=== PATIENT | male | born 1995 | race African-American/Black ===

== ENCOUNTER 2018-07-10 20:14 | Emergency (ER) | payer OTHER ==
[~2018-07-10] VITALS: Ht 182.9 cm; Wt 67.0 kg
[2018-07-10] MEDS ORDERED: TRAM50TA2 PO (21:09)
[2018-07-10] MEDS ORDERED: APAP325T4 PO (21:09)
[2018-07-10] MEDS ORDERED: OXYC1TAB23 PO (21:09)
[2018-07-10 22:10] LABS: HEMATOCRIT 37.4 % (42.0-52.0); HEMOGLOBIN 12.8 g/dl (13.5-17.5); MEAN CORPUSCULAR HEMOGLOBIN 31.4 pg (27.0-33.0); MEAN CORPUSCULAR HGB CONC 34.2 g/dl (32.0-36.5); MEAN CORPUSCULAR VOLUME 91.7 fl (80.0-96.0); PLATELET COUNT, AUTOMATED 214 10^3/uL (150-450); RED BLOOD COUNT 4.08 10^6/uL (4.30-6.10); WHITE BLOOD COUNT 5.4 10^3/uL (4.0-10.0)
[2018-07-10 22:27] LABS: BLOOD UREA NITROGEN 8 MG/DL (7-18); CALCIUM LEVEL 8.2 MG/DL (8.5-10.1); CARBON DIOXIDE LEVEL 27 MEQ/L (21-32); CHLORIDE LEVEL 107 MEQ/L (98-107); CREATININE FOR GFR 1.04 MG/DL (0.70-1.30); GLOMERULAR FILTRATION RATE > 60.0 (>60); GLUCOSE, FASTING 80 MG/DL (70-100); POTASSIUM SERUM 3.8 MEQ/L (3.5-5.1); SODIUM LEVEL 141 MEQ/L (136-145)
--- NOTE | 2018-07-10 22:43 | REPVR ---
EXAM: CT Head Without Contrast EXAM DATE/TIME: 07/10/2018 10:18 PM CLINICAL HISTORY: 22 years old, male; Injury or trauma; Fall; Additional info: Fall and loc TECHNIQUE: Axial computed tomography images of the head/brain without contrast. All CT scans at this facility use at least one of these dose optimization techniques: automated exposure control; mA and/or kV adjustment per patient size (includes targeted exams where dose is matched to clinical indication); or iterative reconstruction. COMPARISON: No relevant prior studies available. FINDINGS: Brain: Low density in the white matter of the posterior parietal and occipital lobes may be artifactual although posttraumatic edema not excluded. MRI correlation would be helpful if deemed clinically necessary. Ventricles: Normal. No ventriculomegaly. Bones/joints: Unremarkable. No acute fracture. Sinuses: Visualized sinuses are unremarkable. No acute sinusitis. Mastoid air cells: Visualized mastoid air cells are unremarkable. No mastoid effusion. Soft tissues: Diffuse scalp edema. Finding likely posttraumatic. Oropharynx: Low-lying cerebellar tonsil on the right. Correlation with MRI is suggested to exclude Chiari 1 malformation. IMPRESSION: 1. Low-lying cerebellar tonsil on the right. Correlation with MRI is suggested to exclude Chiari 1 malformation. 2. Diffuse scalp edema. Finding likely posttraumatic. 3. Low density in the white matter of the posterior parietal and occipital lobes may be artifactual although posttraumatic edema not excluded. MRI correlation would be helpful if deemed clinically necessary. Electronically signed by: Ruiz Doimnguez On 07/10/2018 22:43:20 PM
--- NOTE | 2018-07-10 22:46 | REPVR ---
EXAM: CT Cervical Spine Without Contrast EXAM DATE/TIME: 07/10/2018 10:18 PM CLINICAL HISTORY: 22 years old, male; Injury or trauma; Fall; Initial encounter; Blunt trauma; Additional info: Fall and loc TECHNIQUE: Axial computed tomography images of the cervical spine without intravenous contrast. All CT scans at this facility use at least one of these dose optimization techniques: automated exposure control; mA and/or kV adjustment per patient size (includes targeted exams where dose is matched to clinical indication); or iterative reconstruction. Coronal and sagittal reformatted images were created and reviewed. COMPARISON: No relevant prior studies available. FINDINGS: Vertebrae: This fracture of the anterior inferior aspect of C5. Probable acute fracture at the anterior inferior aspect of C7 as well. Discs/Spinal canal/Neural foramina: Disc space narrowing at C5-6. Soft tissues: Unremarkable. Lungs: Lung apices are normal. IMPRESSION: This fracture of the anterior inferior aspect of C5. Probable acute fracture at the anterior inferior aspect of C7 as well. Electronically signed by: Ruiz Dominguez On 07/10/2018 22:46:03 PM
--- NOTE | 2018-07-11 00:57 | REPVR ---
EXAM: MR Head Without Contrast EXAM DATE/TIME: 07/11/2018 12:07 AM CLINICAL HISTORY: 22 years old, male; Pain and injury or trauma and signs and symptoms; Fall; Initial encounter; Concussion / head injury; With loss of consciousness; Loss of consciousness for 30 minutes or less; Alteration of consciousness and syncope and collapse and visual disturbance; Other: Neck pain; Injury details: PT states he injured his c-spine 1 yr ago and is complain of neck paina and continously blacking out, may have hit his head on 1st black out and has blurry vision; Additional info: Unsteady gait TECHNIQUE: MR of the head without contrast. COMPARISON: CT Head without contrast 07/10/2018 10:03 PM FINDINGS: On diffusion weighted sequences, there is no evidence of true restricted diffusion. No evidence of acute infarction. There are no intra-or extra-axial hemorrhages or fluid collections. There is no mass effect or midline shift. Ventricles are symmetrical and nondilated. There are no focal parenchymal abnormalities. Midline craniocervical structures are grossly normal. No definite evidence of pathologic cerebellar tonsillar ectopia. Normal flow voids are identified in the major intracranial arteries. Paranasal sinuses and mastoid air cells are clear. IMPRESSION: No evidence of true restricted diffusion. No evidence of acute infarction. No acute intracranial process. No definite evidence of significant cerebellar tonsillar ectopia. No definite evidence of Chiari malformation. Electronically signed by: Edin Sinha On 07/11/2018 00:57:10 AM
--- NOTE | 2018-07-11 00:59 | REPVR ---
EXAM: MR Angiogram Head Without Contrast, Arteries EXAM DATE/TIME: 07/11/2018 12:07 AM CLINICAL HISTORY: 22 years old, male; Pain and injury or trauma and signs and symptoms; Fall; Initial encounter; Unconscious; Syncope and collapse and visual disturbance; Type not specified; Other: Neck pain; Injury details: PT states he injured his c-spine 1 yr ago and is complain of neck paina and continously blacking out, may have hit his head on 1st black out and has blurry vision; Additional info: Unsteady gait, abnormal head CT (r/o chiari malformation) TECHNIQUE: MR angiogram head without contrast. Exam focused on the arteries. MIP reconstructed images were created and reviewed. COMPARISON: CT Head without contrast 07/10/2018 10:03 PM FINDINGS: No significant stenosis, occlusion or aneurysmal dilatation within the anterior or posterior intracranial arterial circulation. Incidental note is made of patent posterior communicating arteries bilaterally. IMPRESSION: Unremarkable intracranial MRA. Electronically signed by: Edin Sinha On 07/11/2018 00:59:38 AM
[2018-07-11 01:33] LABS: AMPHETAMINES LEVEL URINE NEGATIVE (NEGATIVE); BARBITURATES URINE NEGATIVE (NEGATIVE); BENZODIAZEPINES URINE NEGATIVE (NEGATIVE); CANNABINOIDS URINE NEGATIVE (NEGATIVE); COCAINE METABOLITE URINE NEGATIVE (NEGATIVE); METHADONE URINE NEGATIVE (NEGATIVE); OPIATES URINE POSITIVE (NEGATIVE); PHENCYCLIDINE URINE NEGATIVE (NEGATIVE)
[2018-07-11 02:00] VITALS: BP 117/64
--- NOTE | 2018-07-15 19:19 | ED PDOC ---
Post-Departure Follow-Up ct c spine reviewed. ask discharge planner to contact pt and review history. there is co nfusion if C5/C7 is new/old from documentation. to call pt back if new. Alejandro Bernstein MD Jul 15, 2018 19:19
--- NOTE | 2018-07-15 19:28 | ED PDOC ---
Post-Departure Follow-Up ft [facility] faxed formal of ct c spine for fu. see [place] angela note. Alejandro Bernstein MD Jul 15, 2018 19:28
== END 2018-07-11 02:10 | disposition home or self-care (01) ==
LOC: M ED 20:14
DX: R55 Syncope and collapse (principal)

== ENCOUNTER 2018-10-04 16:12 | Emergency (ER) | payer OTHER ==
[~2018-10-04] VITALS: Ht 182.9 cm; Wt 63.6 kg
[~2018-10-04 16:12] MED LIST: APAP325T4 PO; OXYC1TAB23 PO; TRAM50TA2 PO
[2018-10-04] MEDS ORDERED: NEUR100C PO (16:15)
[2018-10-04 18:01] LABS: HEMATOCRIT 42.1 % (42.0-52.0); HEMOGLOBIN 14.2 g/dl (13.5-17.5); MEAN CORPUSCULAR HEMOGLOBIN 31.1 pg (27.0-33.0); MEAN CORPUSCULAR HGB CONC 33.7 g/dl (32.0-36.5); MEAN CORPUSCULAR VOLUME 92.3 fl (80.0-96.0); PLATELET COUNT, AUTOMATED 312 10^3/uL (150-450); RED BLOOD COUNT 4.56 10^6/uL (4.30-6.10); WHITE BLOOD COUNT 5.3 10^3/uL (4.0-10.0)
[2018-10-04 18:31] LABS: AMPHETAMINES LEVEL URINE NEGATIVE (NEGATIVE); BARBITURATES URINE NEGATIVE (NEGATIVE); BENZODIAZEPINES URINE NEGATIVE (NEGATIVE); CANNABINOIDS URINE NEGATIVE (NEGATIVE); COCAINE METABOLITE URINE NEGATIVE (NEGATIVE); METHADONE URINE NEGATIVE (NEGATIVE); OPIATES URINE NEGATIVE (NEGATIVE); PHENCYCLIDINE URINE NEGATIVE (NEGATIVE)
[2018-10-04 18:57] LABS: ACETAMINOPHEN LEVEL < 2.0 UG/ML (10.0-30.0); ALBUMIN 4.2 GM/DL (3.2-5.2); ALT/SGPT 22 U/L (12-78); BILIRUBIN,DIRECT 0.2 MG/DL (0.0-0.2); BILIRUBIN,TOTAL 0.6 MG/DL (0.2-1.0); BLOOD UREA NITROGEN 10 MG/DL (7-18); CALCIUM LEVEL 8.8 MG/DL (8.5-10.1); CARBON DIOXIDE LEVEL 29 MEQ/L (21-32); CHLORIDE LEVEL 105 MEQ/L (98-107); ETHYL ALCOHOL (ETHANOL) < 0.003 % (0.000-0.010); GLOMERULAR FILTRATION RATE > 60.0 (>60); GLUCOSE, FASTING 96 MG/DL (70-100); SALICYLATE LEVEL < 1.7 MG/DL (5.0-30.0); SODIUM LEVEL 139 MEQ/L (136-145); TOTAL PROTEIN 7.2 GM/DL (6.4-8.2)
[2018-10-04 19:37] VITALS: BP 127/72
== END 2018-10-04 19:40 | disposition home or self-care (01) ==
LOC: M ED 16:12
DX: F43.20 Adjustment disorder, unspecified (principal); Z79.899 Other long term (current) drug therapy
CPT/HCPCS: 80048; 80076; 80307; 84443; 85027; 99284; G0480